=== PATIENT | male | born 1980 | race Caucasian/White ===

== ENCOUNTER → 2017-03-17 | Outpatient (CLI) | payer OTHER ==
[2011-09-25 07:21] VITALS: BP 128/80
[~2017-03-17] MED LIST: NORCO 325 MG-51 TAB PO; NORGESIC FORTE1 TA1 PO; NORVASC 5MG5 MG/TAB PO; WELLBUTRIN SR150 MG PO; ZESTORETIC 25 M1 TAB PO
== END ==
LOC: LAB 16:51
DX: I10 Essential (primary) hypertension (principal); R73.01 Impaired fasting glucose

== ENCOUNTER → 2018-03-11 | Outpatient (CLI) | payer BC ==
[2011-09-25 07:21] VITALS: BP 128/80
[2018-03-11 15:39] LABS: BUN/CREATININE RATIO 15.3 (6.0-26.0); CALCIUM 9.1 mg/dL (8.4-10.2); POTASSIUM 3.6 mmol/L (3.6-5.0)
== END ==
LOC: LAB 14:55
PROVIDERS: Nurse Practitioner Family
DX: I10 Essential (primary) hypertension (principal); R73.01 Impaired fasting glucose; R60.9 Edema, unspecified

== ENCOUNTER → 2019-04-19 | Outpatient (CLI) | payer BC ==
[2011-09-25 07:21] VITALS: BP 128/80
[2019-04-19 16:43] LABS: EOS # 0.2 (0.04-0.40); EOS % 2.2 % (0.0-4.0); HEMOGLOBIN 15.5 g/dL (13.5-18.0); LYMPH# 2.9 (1.50-4.00); MEAN CELL VOLUME 94 fl (78-100); MEAN CORPUSCULAR HEMOGLOBIN 32 pg (27-31); MEAN CORPUSCULAR HGB CONC 34 g/dL (33-37); MONO # 0.6 (0.20-0.80); NEU # 6.3 (1.40-6.50); PLATELET COUNT 198 K/mm3 (130-400); RED BLOOD COUNT 4.89 M/mm3 (4.20-5.60); RED CELL DISTRIBUTION WIDTH 12.8 % (11.5-14.5)
[2019-04-19 17:50] LABS: CALCIUM 9.6 mg/dL (8.3-10.5); POTASSIUM 3.6 mmol/L (3.5-5.1)
[2019-04-19 17:51] LABS: ALBUMIN 4.5 g/dL (3.5-5.0); TOTAL BILIRUBIN 0.3 mg/dL (0.2-1.2); TOTAL PROTEIN 8.3 g/dL (6.4-8.3)
[2019-04-19 17:58] LABS: MEAN PLATELET VOLUME 12.7 fl (7.4-10.4)
== END ==
LOC: LAB 16:22
PROVIDERS: Physician Assistant
DX: Z00.00 Encounter for general adult medical examination without abnormal findings (principal); M17.0 Bilateral primary osteoarthritis of knee; R06.83 Snoring; R06.9 Unspecified abnormalities of breathing; G47.8 Other sleep disorders; R40.0 Somnolence; I10 Essential (primary) hypertension; L30.9 Dermatitis, unspecified; R73.01 Impaired fasting glucose

== ENCOUNTER → 2019-04-22 | Outpatient (CLI) | payer BC ==
[2011-09-25 07:21] VITALS: BP 128/80
== END ==
LOC: CARDLAB 04-21 16:05 → CARDREHAB 15:10
DX: Z00.00 Encounter for general adult medical examination without abnormal findings (principal); I10 Essential (primary) hypertension; L30.9 Dermatitis, unspecified; G47.8 Other sleep disorders; R73.01 Impaired fasting glucose; Z72.820 Sleep deprivation

== ENCOUNTER 2019-08-08 16:28 | Emergency (ER) | payer BC ==
[~2019-08-08] VITALS: Ht 182.9 cm; Wt 118.2 kg
[2019-08-08 17:08] LABS: EOS # 0.2 (0.04-0.40); EOS % 1.3 % (0.0-4.0); HEMATOCRIT 47.2 % (42.0-52.0); HEMOGLOBIN 15.8 g/dL (13.5-18.0); LYMPH# 1.9 (1.50-4.00); MEAN CELL VOLUME 94 fl (78-100); MEAN CORPUSCULAR HEMOGLOBIN 31 pg (27-31); MEAN CORPUSCULAR HGB CONC 34 g/dL (33-37); MONO # 0.9 (0.20-0.80); PLATELET COUNT 196 K/mm3 (130-400); RED BLOOD COUNT 5.03 M/mm3 (4.20-5.60); RED CELL DISTRIBUTION WIDTH 12.7 % (11.5-14.5); WHITE BLOOD COUNT 14.4 K/mm3 (4.8-10.8)
[2019-08-08 17:09] LABS: MEAN PLATELET VOLUME 12.2 fl (7.4-10.4); NEU # 11.4 (1.40-6.50)
[2019-08-08 17:18] LABS: ALBUMIN 4.5 g/dL (3.5-5.0); POTASSIUM 3.7 mmol/L (3.5-5.1)
[2019-08-08 17:19] LABS: CALCIUM 9.4 mg/dL (8.3-10.5)
[2019-08-08 17:21] LABS: TOTAL PROTEIN 7.6 g/dL (6.4-8.3)
[2019-08-08 17:22] LABS: TOTAL BILIRUBIN 0.3 mg/dL (0.2-1.2)
[2019-08-08] MEDS ORDERED: VALIUM 2MG T2 MG/TAB PO (17:29)
[2019-08-08] MEDS ORDERED: AUGMENTIN 875-1 EAC1 PO (17:29)
[2019-08-08 17:54] VITALS: BP 130/78
== END 2019-08-08 17:56 | disposition home or self-care (01) ==
LOC: ED 16:28
PROVIDERS: Nurse Practitioner Primary Care
DX: J01.90 Acute sinusitis, unspecified (principal); I10 Essential (primary) hypertension; F17.210 Nicotine dependence, cigarettes, uncomplicated

== ENCOUNTER → 2020-03-01 | Outpatient (CLI) | payer BC ==
[~2020-03-01] MED LIST changes: +AUGMENTIN 875-1 EAC1 PO; +VALIUM 2MG T2 MG/TAB PO
[2020-03-01 13:20] LABS: EOS # 0.3 (0.04-0.40); EOS % 2.9 % (0.0-4.0); HEMATOCRIT 44.4 % (42.0-52.0); HEMOGLOBIN 15.1 g/dL (13.5-18.0); LYMPH# 2.5 (1.50-4.00); MEAN CELL VOLUME 95 fl (78-100); MEAN CORPUSCULAR HEMOGLOBIN 32 pg (27-31); MEAN CORPUSCULAR HGB CONC 34 g/dL (33-37); MONO # 0.7 (0.20-0.80); NEU # 6.2 (1.40-6.50); PLATELET COUNT 186 K/mm3 (130-400); RED BLOOD COUNT 4.68 M/mm3 (4.20-5.60); RED CELL DISTRIBUTION WIDTH 13.1 % (11.5-14.5); WHITE BLOOD COUNT 9.7 K/mm3 (4.8-10.8)
[2020-03-01 13:28] LABS: POTASSIUM 3.9 mmol/L (3.5-5.1)
[2020-03-01 13:29] LABS: ALBUMIN 4.4 g/dL (3.5-5.0)
[2020-03-01 13:30] LABS: CALCIUM 9.1 mg/dL (8.3-10.5)
[2020-03-01 13:31] LABS: TOTAL PROTEIN 7.2 g/dL (6.4-8.3)
[2020-03-01 13:33] LABS: TOTAL BILIRUBIN 0.7 mg/dL (0.2-1.2)
== END ==
LOC: LAB 13:10
PROVIDERS: Physician Assistant
DX: F43.0 Acute stress reaction (principal); L65.9 Nonscarring hair loss, unspecified; E78.5 Hyperlipidemia, unspecified; I10 Essential (primary) hypertension; R73.01 Impaired fasting glucose

== ENCOUNTER 2020-06-06 18:55 | Emergency (ER) | payer BC ==
[2020-06-06] MEDS ORDERED: ESCITALOPRAM10 MG PO (19:06)
[2020-06-06] MEDS ORDERED: FUROSEMIDE40 MG PO (19:07)
[2020-06-06] MEDS ORDERED: ALPRAZOLAM0.5 MG PO (19:07)
[2020-06-06 20:52] VITALS: BP 135/81
== END 2020-06-06 21:00 | disposition home or self-care (01) ==
LOC: ED 18:55
DX: M54.12 Radiculopathy, cervical region (principal); I10 Essential (primary) hypertension; Z88.0 Allergy status to penicillin; F41.9 Anxiety disorder, unspecified; F32.9 Major depressive disorder, single episode, unspecified; F17.210 Nicotine dependence, cigarettes, uncomplicated; W16.512A Jumping or diving into swimming pool striking water surface causing other injury, initial encounter
CPT/HCPCS: J2930; L0172

== ENCOUNTER → 2021-06-18 | Outpatient (CLI) | payer OTHER ==
[~2021-06-18] MED LIST changes: +ALPRAZOLAM0.5 MG PO; +ESCITALOPRAM10 MG PO; +FUROSEMIDE40 MG PO
[2021-06-18 13:02] LABS: BASO # 0.04 K/mm3 (0.02-0.10); EOS # 0.13 K/mm3 (0.04-0.40); EOS % 1.3 % (0.0-4.0); HEMATOCRIT 44.6 % (42.0-52.0); HEMOGLOBIN 14.9 g/dL (13.5-18.0); LYMPH# 2.53 K/mm3 (1.50-4.00); MEAN CELL VOLUME 97 fl (78-100); MEAN CORPUSCULAR HEMOGLOBIN 33 pg (27-31); MEAN CORPUSCULAR HGB CONC 33 g/dL (33-37); MONO # 0.79 K/mm3 (0.20-0.80); NEU # 6.77 K/mm3 (1.40-6.50); PLATELET COUNT 270 K/mm3 (130-400); RED BLOOD COUNT 4.58 M/mm3 (4.20-5.60); RED CELL DISTRIBUTION WIDTH 12.1 % (11.5-14.5); WHITE BLOOD COUNT 10.3 K/mm3 (4.8-10.8)
[2021-06-18 13:10] LABS: POTASSIUM 3.8 mmol/L (3.5-5.1)
[2021-06-18 13:11] LABS: ALBUMIN 4.2 g/dL (3.5-5.0)
[2021-06-18 13:12] LABS: CALCIUM 9.3 mg/dL (8.3-10.5)
[2021-06-18 13:15] LABS: TOTAL BILIRUBIN 0.5 mg/dL (0.2-1.2)
== END ==
LOC: LAB 12:40
PROVIDERS: Physician Assistant
DX: Z00.00 Encounter for general adult medical examination without abnormal findings (principal); Z13.29 Encounter for screening for other suspected endocrine disorder; Z13.1 Encounter for screening for diabetes mellitus; I10 Essential (primary) hypertension; E78.5 Hyperlipidemia, unspecified

== ENCOUNTER → 2022-05-26 | Outpatient (CLI) | payer OTHER | LOC: RAD 11:38 | DX: M19.012 Primary osteoarthritis, left shoulder (principal) ==

== ENCOUNTER → 2024-02-12 | Outpatient (CLI) | payer BC, OTHER | LOC: RAD 13:08 | DX: M77.32 Calcaneal spur, left foot (principal) ==

== ENCOUNTER 2024-04-11 08:07 | Emergency (ER) | payer OTHER, BC ==
[2024-04-11] MEDS ORDERED: AMOXICILLIN AND1 TA2 PO (09:47)
[2024-04-11 09:53] VITALS: BP 145/90
== END 2024-04-11 09:53 | disposition home or self-care (01) ==
LOC: ED 08:07
DX: S81.851A Open bite, right lower leg, initial encounter (principal); Z23 Encounter for immunization; W54.0XXA Bitten by dog, initial encounter
CPT/HCPCS: 90715